=== PATIENT | female | born 1930 | race Caucasian/White ===

== ENCOUNTER 2016-12-08 21:55 | Observation (INO) | payer MEDICARE ==
[~2016-12-08] VITALS: Ht 165.1 cm; Wt 63.6 kg
[2016-12-08] MEDS ORDERED: SODIUM CHLOR 0.9% 1000 ML INJ 1,000 ML IV SCH (22:30)
[2016-12-08] MEDS ORDERED: SODIUM CHLORIDE 0.9% FLUSH 5 ML FLUSH IV FLUSH PRN ×2 (22:30)
--- NOTE | 2016-12-08 22:38 | PD ---
HPI Chief Complaint: Altered Mental Status Time Seen by Provider: 22:35 Travel History International Travel<30 days: No Contact w/Intl Traveler<30days: No History of Present Illness HPI 85-year-old female presents to the ED via EMS for evaluation of altered mental status. Per EMS report the patient was found down this morning by her daughter. The patient states that she lost her balance and fell and was unable to get up. Her daughter cleaned her up and helped her to the recliner. Upon checking on the patient this afternoon she was found to be bradycardic and minimally responsive. EMS administered 0.5 mg atropine and 800 mg IV saline in route. On presentation the patient is alert, oriented 4. She endorses mild nausea and increased urinary urgency. She denies recent history of dizziness, vision changes, fever, chills, chest pain, palpitations, abdominal pain, vomiting. PFSH Social History Tobacco Use: No Allergies-Medications (Allergen,Severity, Reaction): Coded Allergies: grapefruit (Verified Allergy, Unknown, 12/08/16) shellfish derived (Verified Allergy, Unknown, 12/08/16) Uncoded Allergies: oranges (Adverse Reaction, Unknown, 12/08/16) Reported Meds & Prescriptions Reported Meds & Active Scripts Active Reported Centrum Silver Women Tablet (Multivit-Min/Iron/Folic/Lutein) 1 Each Tablet Calcium 600 with Vitamin D (Calcium Carbonate-Cholecalciferol) 600-400 mg-Unit Tab 2 Tab PO DAILY Melatonin 5 Mg Tab 3 Mg PO HS [place]-3 Fish Oil/Vitamin (Fish Oil-Cholecalciferol) 1,000-1,000 Mg Cap 1 Cap PO DAILY Vitamin C (Ascorbic Acid) 250 Mg Tab 500 Mg PO Anastrozole 1 Mg Tab 1 Mg PO DAILY Carbidopa-Levodopa 25-250 Mg Tab 1 Tab PO QID Review of Systems Except as stated in HPI: all other systems reviewed are Neg Physical Exam Narrative GENERAL: Well-nourished, well-developed thin white female in no acute distress. SKIN: Focused skin assessment warm/dry. HEAD: Normocephalic. Atraumatic. EYES: No scleral icterus. No injection or drainage. PERRLA. NECK: Supple, trachea midline. No JVD or lymphadenopathy. CARDIOVASCULAR: Regular rate and rhythm without murmurs, gallops, or rubs. 2+ DP and radial pulses bilaterally. RESPIRATORY: Breath sounds clear and equal bilaterally. No accessory muscle use. GASTROINTESTINAL: Abdomen soft, non-tender, nondistended. Active bowel sounds. MUSCULOSKELETAL: No cyanosis, or edema. No tenderness to palpation of bilateral hips and femurs. Patient is able to flex and extend the knees and ankles. Neurovascularly intact in bilateral lower extremities. BACK: Nontender without obvious deformity. No CVA tenderness. Data Data Last Documented VS Vital Signs Date Time Temp Pulse Resp B/P (MAP) Pulse Ox O2 Delivery O2 Flow Rate FiO2 12/08/16 22:44 97.3 68 16 116/56 (76) 95 Orders Orders Complete Blood Count With Diff (12/08/16 22:29) Comprehensive Metabolic Panel (12/08/16:29) Urinalysis - C+S If Indicated (12/08/16 22:29) Lactic Acid Sepsis Protocol (12/08/16 22:29) Blood Culture (12/08/16 22:29) Chest, Single Ap (12/08/16 22:29) Ct Brain W/O Iv Contrast(Rout) (12/08/16 22:29) Blood Glucose (12/08/16 22:29) Ecg Monitoring (12/08/16 22:29) Iv Access Insert/Monitor (12/08/16 22:29) Oximetry (12/08/16 22:29) Sodium Chloride 0.9% Flush (Ns Flush) (12/08/16 22:30) Electrocardiogram (12/08/16 22:30) Prothrombin Time / Inr (Pt) (12/08/16 22:30) Act Partial Throm Time (Ptt) (12/08/16 22:30) Sodium Chloride 0.9% Flush (Ns Flush) (12/08/16 22:30) Sodium Chlor 0.9% 1000 Ml Inj (Ns 1000 M (12/08/16 22:30) Ct Cerv Spine W/O Contrast (12/08/16 22:30) Creatine Kinase (Cpk) (12/08/16 22:29) Troponin I (12/08/16 22:29) Ceftriaxone Inj (Rocephin Inj) (12/08/16 23:15) Admit Order (Ed Use Only) (12/09/16 00:14) Labs Laboratory Tests Test 12/08/16 22:35 White Blood Count 10.7 TH/MM3 Red Blood Count 4.38 MIL/MM3 Hemoglobin 13.1 GM/DL Hematocrit 39.6 % Mean Corpuscular Volume 90.4 FL Mean Corpuscular Hemoglobin 29.9 PG Mean Corpuscular Hemoglobin Concent 33.1 % Red Cell Distribution Width 14.1 % Platelet Count 171 TH/MM3 Mean Platelet Volume 8.4 FL Neutrophils (%) (Auto) 82.7 % Lymphocytes (%) (Auto) 9.2 % Monocytes (%) (Auto) 7.0 % Eosinophils (%) (Auto) 0.7 % Basophils (%) (Auto) 0.4 % Neutrophils # (Auto) 8.9 TH/MM3 Lymphocytes # (Auto) 1.0 TH/MM3 Monocytes # (Auto) 0.7 TH/MM3 Eosinophils # (Auto) 0.1 TH/MM3 Basophils # (Auto) 0.0 TH/MM3 CBC Comment DIFF FINAL Differential Comment Prothrombin Time 10.6 SEC Prothromb Time International Ratio 1.0 RATIO Activated Partial Thromboplast Time 24.1 SEC Urine Color LIGHT-YELLOW Urine Turbidity CLEAR Urine pH 7.5 Urine Specific [place] 1.010 Urine Protein 30 mg/dL Urine Glucose (UA) NEG mg/dL Urine Ketones 10 mg/dL Urine Occult Blood TRACE Urine Nitrite NEG Urine Bilirubin NEG Urine Urobilinogen LESS THAN 2.0 MG/DL Urine Leukocyte Esterase TRACE Urine RBC 1 /hpf Urine WBC 6 /hpf Urine Amorphous Sediment RARE Urine Mucus FEW /lpf Microscopic Urinalysis Comment CATH-CULT NOT IND Blood Urea Nitrogen 22 MG/DL Creatinine 0.99 MG/DL Random Glucose 120 MG/DL Total Protein 6.4 GM/DL Albumin 3.3 GM/DL Calcium Level 8.9 MG/DL Alkaline Phosphatase 55 U/L Aspartate Amino Transf (AST/SGOT) 22 U/L Alanine Aminotransferase (ALT/SGPT) 18 U/L Total Bilirubin 0.6 MG/DL Sodium Level 144 MEQ/L Potassium Level 3.9 MEQ/L Chloride Level 108 MEQ/L Carbon Dioxide Level 28.6 MEQ/L Anion Gap 7 MEQ/L Estimat Glomerular Filtration Rate 53 ML/MIN Lactic Acid Level 1.2 mmol/L Total Creatine Kinase 128 U/L Troponin I 0.11 NG/ML MDM Medical Decision Making Medical Screen Exam Complete: Yes Emergency Medical Condition: Yes Differential Diagnosis UTI versus PNA versus dehydration versus metabolic derangement versus skull fracture versus ICH versus ACS versus other Narrative Course 85-year-old female presents to the ED via EMS for evaluation of altered mental status. Per EMS report the patient was found down this morning by her daughter. The patient states that she lost her balance and fell and was unable to get up. Her daughter cleaned her up and helped her to the recliner. Upon checking on the patient this afternoon she was found to be bradycardic and minimally responsive. EMS administered 0.5 mg atropine and 800 mg IV saline in route. On presentation the patient is alert, oriented 4. She endorses mild nausea and increased urinary urgency. She denies recent history of dizziness, vision changes, fever, chills, chest pain, palpitations, abdominal pain, vomiting. Vitals reviewed. Patient is frail, but alert on presentation. chest CTAB, abdomen soft and nontender. No focal neuro deficits. Full ROM in the BLE. Lab work ordered and pending. Disposition per Dr. Garcia. Altagracia Michaels Dec 08, 2016 22:38
[2016-12-08 22:44] VITALS: BP 116/56; PULSE 68; RESP 16; TEMP 97.3; O2SAT 95
--- NOTE | 2016-12-08 22:59 | RADRPT ---
EXAM DATE/TIME: 12/08/2016 22:50 [facility] COMPARISON: No previous studies available for comparison. INDICATIONS : Short of breath. MEDICAL HISTORY : None. SURGICAL HISTORY : None. ENCOUNTER: Initial ACUITY: 1 day PAIN SCORE: 0/10 LOCATION: Bilateral chest FINDINGS: A single view of the chest demonstrates no focal consolidation. No effusion. Heart size within normal limits. Mildly tortuous aorta CONCLUSION: 1. No active disease. Eulogio Cool MD on December 08, 2016 at 22:56 Board Certified Radiologist. This report was verified electronically.
[2016-12-08] MEDS ORDERED: CARB25TA12 PO (23:00)
[2016-12-08] MEDS ORDERED: DONE5TAB7 PO (23:00)
[2016-12-08 23:03] LABS: AUTOMATED NEUTROPHIL # 8.9 TH/MM3 (1.8-7.7); BASOPHIL % 0.4 % (0.0-2.0); BLOOD, URINE TRACE (NEG); EOSINOPHIL # 0.1 TH/MM3 (0-0.4); EOSINOPHIL % 0.7 % (0.0-4.0); GLUCOSE,URINE NEG (NEG); HEMATOCRIT 39.6 % (35.0-46.0); HEMO FLAGS DIFF FINAL; KETONE, URINE 10 mg/dL (NEG); LYMPH % 9.2 % (9.0-44.0); MEAN CELL VOLUME 90.4 FL (80.0-100.0); MEAN CORPUSCULAR HEMOGLOBIN 29.9 PG (27.0-34.0); MEAN CORPUSCULAR HGB CONC 33.1 % (32.0-36.0); MUCUS URINE FEW /lpf (OCC); NEUT % 82.7 % (16.0-70.0); NITRITE,URINE NEG (NEG); PH, URINE 7.5 (5.0-8.5); PLATELET COUNT 171 TH/MM3 (150-450); RED BLOOD COUNT 4.38 MIL/MM3 (4.00-5.30); RED CELL DISTRIBUTION WIDTH 14.1 % (11.6-17.2); URINE COLOR LIGHT-YELLOW (YELLW/STRAW); WHITE BLOOD COUNT 10.7 TH/MM3 (4.0-11.0)
[2016-12-08 23:04] LABS: COMMENT (UR) CATH-CULT NOT IND; CULTURE IF INDICATED CATH CULTURE NOT IND
[2016-12-08] MEDS ORDERED: cefTRIAXone INJ 1,000 MG in SODIUM CHLORIDE 0.9% INJ 100 ML IV ONE (23:15)
[2016-12-08] MEDS ORDERED: OMEGCAP PO (23:18)
[2016-12-08] MEDS ORDERED: MELA5TAB15 PO (23:18)
[2016-12-08] MEDS ORDERED: CALC1TAB87 PO (23:18)
[2016-12-08] MEDS ORDERED: VITA250T3 PO (23:18)
[2016-12-08] MEDS ORDERED: ANAS1TAB PO (23:18)
[2016-12-08] MEDS ORDERED: MULT1TAB61 (23:18)
[2016-12-08 23:22] LABS: ALT (GPT) 18 U/L (10-53); ANION GAP 7 MEQ/L (5-15); AST (GOT) 22 U/L (15-37); BICARBONATE 28.6 MEQ/L (21.0-32.0); BLOOD UREA NITROGEN 22 MG/DL (7-18); CHLORIDE 108 MEQ/L (98-107); GLOMERULAR FILTRATION RATE 53 ML/MIN (>89); POTASSIUM 3.9 MEQ/L (3.5-5.1); SODIUM (NA) 144 MEQ/L (136-145)
[2016-12-08 23:25] LABS: APTT (PATIENT) 24.1 SEC (24.3-30.1); PROTHROMBIN TIME - PATIENT 10.6 SEC (9.8-11.6)
[2016-12-08 23:26] LABS: ALKALINE PHOSPHATASE 55 U/L (45-117); CREATINE KINASE 128 U/L (26-192); TOTAL BILIRUBIN ADULT 0.6 MG/DL (0.2-1.0)
--- NOTE | 2016-12-08 23:38 | RADRPT ---
EXAM DATE/TIME: 12/08/2016 23:09 [facility] COMPARISON: No previous studies available for comparison. INDICATIONS : Trauma; patient fell last night. RADIATION DOSE: 56.35 CTDIvol (mGy) MEDICAL HISTORY : Unable to obtain SURGICAL HISTORY : Unable to obtain ENCOUNTER: Initial ACUITY: 1 day PAIN SCALE: Non-responsive LOCATION: cranial TECHNIQUE: Multiple contiguous axial images were obtained of the head. Using automated exposure control and adj ustment of the mA and/or kV according to patient size, radiation dose was kept as low as reasonably a chievable to obtain optimal diagnostic quality images. DICOM format image data is available electro nically for review and comparison. FINDINGS: CEREBRUM: The ventricles are normal for age. No evidence of midline shift, mass lesion, hemorrhage or acute in farction. No extra-axial fluid collections are seen. POSTERIOR FOSSA: The cerebellum and brainstem are intact. The 4th ventricle is midline. The cerebellopontine angle i s unremarkable. EXTRACRANIAL: The visualized portion of the orbits is intact. SKULL: The calvaria is intact. No evidence of skull fracture. CONCLUSION: 1. No acute intracranial abnormalities. Eulogio Cool MD on December 08, 2016 at 23:33 Board Certified Radiologist. This report was verified electronically.
--- NOTE | 2016-12-08 23:56 | RADRPT ---
EXAM DATE/TIME: 12/08/2016 23:10 [facility] COMPARISON: No previous studies available for comparison. INDICATIONS : Trauma; patient fell last night. RADIATION DOSE: 32.73 CTDIvol (mGy) MEDICAL HISTORY : Unable to obtain SURGICAL HISTORY : Unable to obtain ENCOUNTER: Initial ACUITY: 1 day PAIN SCALE: Non-responsive LOCATION: neck TECHNIQUE: Volumetric scanning of the cervical spine was performed. Multiplanar reconstructions in the sagittal, coronal and oblique axial planes were performed. Using automated exposure control and adjustment o f the mA and/or kV according to patient size, radiation dose was kept as low as reasonably achievable to obtain optimal diagnostic quality images. DICOM format image data is available electronically f or review and comparison. FINDINGS: VERTEBRAE: Normal vertebral body height. ALIGNMENT: No evidence of subluxation. C2-C3: The bony spinal canal is normal in size. No evidence of disc bulge or herniation. The neural forami na are bilaterally patent. C3-C4: The bony spinal canal is normal in size. No evidence of disc bulge or herniation. The neural forami na are bilaterally patent. C4-C5: The bony spinal canal is normal in size. No evidence of disc bulge or herniation. The neural forami na are bilaterally patent. C5-C6: The bony spinal canal is normal in size. No evidence of disc bulge or herniation. The neural forami na are bilaterally patent. C6-C7: The bony spinal canal is normal in size. No evidence of disc bulge or herniation. The neural forami na are bilaterally patent. C7-T1: The bony spinal canal is normal in size. No evidence of disc bulge or herniation. The neural forami na are bilaterally patent. CONCLUSION: 1. There is no acute fracture or spondylolisthesis. Facet arthropathy. No acute findings. Eulogio Cool MD on December 08, 2016 at 23:48 Board Certified Radiologist. This report was verified electronically.
[2016-12-09] VITALS (7 sets, daily range): BP systolic 98–156; BP diastolic 47–78; PULSE 49–83; RESP 16–18; TEMP 97.4–97.7; O2SAT 96–99
--- NOTE | 2016-12-09 00:14 | PD ---
Physical Exam Date Seen by Provider: Dec 09, 2016 Narrative This patient be seen for weakness. Please see Altagracia Michaels's note for full details. Data Data Last Documented VS Vital Signs Date Time Temp Pulse Resp B/P (MAP) Pulse Ox O2 Delivery O2 Flow Rate FiO2 12/08/16 22:44 97.3 68 16 116/56 (76) 95 Orders Orders Complete Blood Count With Diff (12/08/16 22:29) Comprehensive Metabolic Panel (12/08/16 22:29) Urinalysis - C+S If Indicated (12/08/16 22:29) Lactic Acid Sepsis Protocol (12/08/16 22:29) Blood Culture (12/08/16 22:29) Chest, Single Ap (12/08/16 22:29) Ct Brain W/O Iv Contrast(Rout) (12/08/16 22:29) Blood Glucose (12/08/16 22:29) Ecg Monitoring (12/08/16 22:29) Iv Access Insert/Monitor (12/08/16 22:29) Oximetry (12/08/16 22:29) Sodium Chloride 0.9% Flush (Ns Flush) (12/08/16 22:30) Electrocardiogram (12/08/16 22:30) Prothrombin Time / Inr (Pt) (12/08/16 22:30) Act Partial Throm Time (Ptt) (12/08/16 22:30) Sodium Chloride 0.9% Flush (Ns Flush) (12/08/16 22:30) Sodium Chlor 0.9% 1000 Ml Inj (Ns 1000 M (12/08/16 22:30) Ct Cerv Spine W/O Contrast (12/08/16 22:30) Creatine Kinase (Cpk) (12/08/16 22:29) Troponin I (12/08/16 22:29) Ceftriaxone Inj (Rocephin Inj) (12/08/16 23:15) Labs Laboratory Tests Test 12/08/16 22:35 White Blood Count 10.7 TH/MM3 Red Blood Count 4.38 MIL/MM3 Hemoglobin 13.1 GM/DL Hematocrit 39.6 % Mean Corpuscular Volume 90.4 FL Mean Corpuscular Hemoglobin 29.9 PG Mean Corpuscular Hemoglobin Concent 33.1 % Red Cell Distribution Width 14.1 % Platelet Count 171 TH/MM3 Mean Platelet Volume 8.4 FL Neutrophils (%) (Auto) 82.7 % Lymphocytes (%) (Auto) 9.2 % Monocytes (%) (Auto) 7.0 % Eosinophils (%) (Auto) 0.7 % Basophils (%) (Auto) 0.4 % Neutrophils # (Auto) 8.9 TH/MM3 Lymphocytes # (Auto) 1.0 TH/MM3 Monocytes # (Auto) 0.7 TH/MM3 Eosinophils # (Auto) 0.1 TH/MM3 Basophils # (Auto) 0.0 TH/MM3 CBC Comment DIFF FINAL Differential Comment Prothrombin Time 10.6 SEC Prothromb Time International Ratio 1.0 RATIO Activated Partial Thromboplast Time 24.1 SEC Urine Color LIGHT-YELLOW Urine Turbidity CLEAR Urine pH 7.5 Urine Specific [place] 1.010 Urine Protein 30 mg/dL Urine Glucose (UA) NEG mg/dL Urine Ketones 10 mg/dL Urine Occult Blood TRACE Urine Nitrite NEG Urine Bilirubin NEG Urine Urobilinogen LESS THAN 2.0 MG/DL Urine Leukocyte Esterase TRACE Urine RBC 1 /hpf Urine WBC 6 /hpf Urine Amorphous Sediment RARE Urine Mucus FEW /lpf Microscopic Urinalysis Comment CATH-CULT NOT IND Blood Urea Nitrogen 22 MG/DL Creatinine 0.99 MG/DL Random Glucose 120 MG/DL Total Protein 6.4 GM/DL Albumin 3.3 GM/DL Calcium Level 8.9 MG/DL Alkaline Phosphatase 55 U/L Aspartate Amino Transf (AST/SGOT) 22 U/L Alanine Aminotransferase (ALT/SGPT) 18 U/L Total Bilirubin 0.6 MG/DL Sodium Level 144 MEQ/L Potassium Level 3.9 MEQ/L Chloride Level 108 MEQ/L Carbon Dioxide Level 28.6 MEQ/L Anion Gap 7 MEQ/L Estimat Glomerular Filtration Rate 53 ML/MIN Lactic Acid Level 1.2 mmol/L Total Creatine Kinase 128 U/L Troponin I 0.11 NG/ML [facility] Supervised Visit with [facility]: Yes Narrative Course CBC & BMP Diagram 12/08/16 22:35 Total Protein 6.4, Albumin 3.3 L, Calcium Level 8.9, Alkaline Phosphatase 55, Aspartate Amino Transf (AST/SGOT) 22, Alanine Aminotransferase (ALT/SGPT) 18, Total Bilirubin 0.6 Lactic acid level was 1.2. UA shows trace leukocyte esterase and 6 white blood cells. She has been treated empirically with Rocephin. Troponin is elevated at 0.11. Renal function is only mildly diminished. Because of the profound weakness associated with a UTI and because of the elevated troponin, this patient needs to be admitted to observation for further evaluation and treatment. She and her daughter are agreeable with this plan. Physician Communication Physician Communication Dr. Dudley Diagnosis Primary Impression: Elevated troponin Additional Impressions: Urinary tract infection Qualified Codes: N30.00 - Acute cystitis without hematuria Frequent falls Weakness Admitting Information Admitting Physician Requests: Observation Condition: Stable Dara Garcia MD Dec 09, 2016 00:14
[2016-12-09] MEDS ORDERED: NITROGLYCERIN 0.4 MG SL 25 TABS/BTL SL PRN (00:30)
--- NOTE | 2016-12-09 07:48 | EKG ---
Date Performed: 12/09/2016 Time Performed: 04:41:41 PTAGE: 85 years EKG: SINUS BRADYCARDIA NONSPECIFIC T-WAVE ABNORMALITY BORDERLINE ECG PREVIOUS TRACING : 12/08/2016 22.37 No significant change from previous tracing noted. DOCTOR: Sanjiv Lock Interpretating Date/Time 12/09/2016 07:47:28
[2016-12-09] MEDS ORDERED: NON-FORMULARY DRUG (Fish Oil-Cholecalciferol (Omega-3 Fish Oil/Vitamin) 1 CAP) PO SCH (09:00)
--- NOTE | 2016-12-09 09:01 | HHI.HP ---
HPI Service [facility] Hospitalists Primary Care Physician Dr. Miguel Ortega Admission Diagnosis elevated troponin, UTI, weakness, frequent falls Chief Complaint: Generalized Weakness Travel History International Travel<30 Days: No Contact w/Intl Traveler <30 Da: No History of Present Illness Mrs. Mckee is a pleasant 85 y/o WF with Parkinson's Disease, osteoarthritis , CKD, stage 3 and hx of breast cancer. Pt was brought to the ED by [facility]AC after she was found down at home by her daughter. Pt reportedly lives alone. She typically ambulates with the use of a cane at home. Pt is somewhat confused and a poor historian. She states that she fell yesterday in her bedroom but is unclear of how she fell. The pt denies any LOC or head injury. No complaints of pain. Its also not clear how long she was down on the ground for. Pt states that she was too weak to get up on her own. Per the ER records, when [facility]AC arrived she was found to be bradycardic and minimally responsive. EMS administered 0.5 mg atropine and 800 mg IV saline in route with improvement in her clinical status. She denies any abd pain, chest pain, nausea/vomiting or diarrhea. She states that she drinks plenty of fluids and that her daughter and/ or grandson bring her food. She is unclear of the details of what happened at home. She tells me that she is "just tired and doesn't want to talk." She told the the ED PA that she had some mild nausea and increased urinary urgency. UA noted some trace LE and elevated WBC and protein. She is afebrile and WBC count has been normal. Pt was given Rocephin in the ED. Review of Systems ROS Limitations: Poor Historian Constitutional: DENIES: Fever, Chills Eyes: DENIES: Vision loss Ears, nose, mouth, throat: DENIES: Hearing loss Respiratory: DENIES: Cough, Shortness of breath Cardiovascular: DENIES: Chest pain, Palpitations Gastrointestinal: DENIES: Abdominal pain, Diarrhea, Nausea, Vomiting Genitourinary: COMPLAINS OF: Urinary frequency, DENIES: Hematuria, Dysuria Musculoskeletal: DENIES: Neck pain Integumentary: DENIES: Rash Neurologic: DENIES: Headache Psychiatric: COMPLAINS OF: Confusion, DENIES: Hallucinations Past Family Social History Past Medical History HTN Hyperlipidemia Osteoarthritis Degenerative joint disease Parkinson's disease Hx of breast cancer s/p lumpectomy CKD, stage 3 Right femoral neck fracture in 03/2016 Past Surgical History Breast lumpectomy Right hip hemiarthroplasty 03/19/[address] Drake Huber Reported Medications -Anastrozole 1 Mg PO DAILY -Carbidopa-Levodopa 25-250 Mg PO QID Centrum Silver Women Tablet (Multivit-Min/Iron/Folic/Lutein) 1 Each Tablet Calcium 600 with Vitamin D (Calcium Carbonate-Cholecalciferol) 600-400 mg-Unit Tab 2 Tab PO DAILY Melatonin 5 Mg Tab 3 Mg PO HS Banner-3 Fish Oil/Vitamin (Fish Oil-Cholecalciferol) 1,000-1,000 Mg Cap 1 Cap PO DAILY Vitamin C (Ascorbic Acid) 250 Mg Tab 500 Mg PO Allergies: Coded Allergies: grapefruit (Verified Allergy, Unknown, 12/08/16) shellfish derived (Verified Allergy, Unknown, 12/08/16) Uncoded Allergies: oranges (Adverse Reaction, Unknown, 12/08/16) Family History Noncontributory Social History Hx of social alcohol use, none recently Denies any tobacco or illicit drug use Physical Exam Vital Signs Vital Signs Date Time Temp Pulse Resp B/P (MAP) Pulse Ox O2 Delivery O2 Flow Rate FiO2 12/09/16 04:56 49 16 156/78 (104) 98 Room Air 12/09/16 03:36 97.7 75 18 117/78 (91) 98 Room Air 12/08/16 22:44 97.3 68 16 116/56 (76) 95 Physical Exam GENERAL: This is a thin elderly female, in no apparent distress. SKIN: No rashes, ecchymoses or lesions. Cool and dry. HEENT: Atraumatic. Normocephalic. No temporal or scalp tenderness. No scleral icterus. Airway patent. NECK: Trachea midline, supple, nontender. CARDIO: Regular, uri RESP: CTA bilaterally. No wheezes, rales, or rhonchi. ABD: +BS, soft, non-tender, nondistended. EXT: Extremities without clubbing, cyanosis, or edema. NEURO: Awake and confused. Motor and sensory grossly within normal limits. Normal speech. Memory deficits Laboratory Laboratory Tests Test 12/08/16 22:35 12/09/16 03:46 White Blood Count 10.7 Red Blood Count 4.38 Hemoglobin 13.1 Hematocrit 39.6 Mean Corpuscular Volume 90.4 Mean Corpuscular Hemoglobin 29.9 Mean Corpuscular Hemoglobin Concent 33.1 Red Cell Distribution Width 14.1 Platelet Count 171 Mean Platelet Volume 8.4 Neutrophils (%) (Auto) 82.7 Lymphocytes (%) (Auto) 9.2 Monocytes (%) (Auto) 7.0 Eosinophils (%) (Auto) 0.7 Basophils (%) (Auto) 0.4 Neutrophils # (Auto) 8.9 Lymphocytes # (Auto) 1.0 Monocytes # (Auto) 0.7 Eosinophils # (Auto) 0.1 Basophils # (Auto) 0.0 CBC Comment DIFF FINAL Differential Comment Prothrombin Time 10.6 Prothromb Time International Ratio 1.0 Activated Partial Thromboplast Time 24.1 Urine Color LIGHT-YELLOW Urine Turbidity CLEAR Urine pH 7.5 Urine Specific [place] 1.010 Urine Protein 30 Urine Glucose (UA) NEG Urine Ketones 10 Urine Occult Blood TRACE Urine Nitrite NEG Urine Bilirubin NEG Urine Urobilinogen LESS THAN 2.0 Urine Leukocyte Esterase TRACE Urine RBC 1 Urine WBC 6 Urine Amorphous Sediment RARE Urine Mucus FEW Microscopic Urinalysis Comment CATH-CULT NOT IND Blood Urea Nitrogen 22 Creatinine 0.99 Random Glucose 120 Total Protein 6.4 Albumin 3.3 Calcium Level 8.9 Alkaline Phosphatase 55 Aspartate Amino Transf (AST/SGOT) 22 Alanine Aminotransferase (ALT/SGPT) 18 Total Bilirubin 0.6 Sodium Level 144 Potassium Level 3.9 Chloride Level 108 Carbon Dioxide Level 28.6 Anion Gap 7 Estimat Glomerular Filtration Rate 53 Lactic Acid Level 1.2 Total Creatine Kinase 128 109 Troponin I 0.11 0.09 Date/Time Source Procedure Growth Status 12/08/16 22:35 Blood Peripheral Aerobic Blood Culture Pending Received 12/08/16 22:35 Blood Peripheral Anaerobic Blood Culture Pending Received Result Diagram: 12/08/16223412/08/162234 Septic Shock Reassessment Heart: Regular rate and rhythm Lungs: Clear Skin: Warm Caprini VTE Risk Assessment Caprini VTE Risk Assessment: Mod/High Risk (score >= 2) Caprini Risk Assessment Model Point Value = 1 Point Value = 2 Point Value = 3 Point Value = 5 Age 41-60 Minor surgery BMI > 25 kg/m2 Swollen legs Varicose veins or History of unexplained or recurrent spontaneous Oral contraceptives or hormone replacement Sepsis (< 1 month) Serious lung disease, including pneumonia (< 1 month) Abnormal pulmonary function Acute myocardial infarction Congestive heart failure (< 1 month) History of inflammatory bowel disease Medical patient at bed rest Age 61-74 Arthroscopic surgery Major open surgery (> 45 min) Laparoscopic surgery (> 45 min) Malignancy Confined to bed (> 72 hours) Immobilizing plaster cast Central venous access Age >= 75 History of VTE Family history of VTE Factor V Leiden Prothrombin [id number] Lupus anticoagulant Anticardiolipin antibodies Elevated serum homocysteine Heparin-induced thrombocytopenia Other congenital or acquired thrombophilia Stroke (< 1 month) Elective arthroplasty Hip, pelvis, or leg fracture Acute spinal cord injury (< 1 month) Prophylaxis Regimen Total Risk Factor Score Risk Level Prophylaxis Regimen 0-1 Low Early ambulation 2 Moderate Order ONE of the following: *Sequential Compression Device (SCD) *Heparin 5000 units SQ BID 3-4 Higher Order ONE of the following medications: *Heparin 5000 units SQ TID *Enoxaparin/Lovenox 40 mg SQ daily (WT < 150 kg, CrCl > 30 mL/min) *Enoxaparin/Lovenox 30 mg SQ daily (WT < 150 kg, CrCl > 10-29 mL/min) *Enoxaparin/Lovenox 30 mg SQ BID (WT < 150 kg, CrCl > 30 mL/min) AND/OR *Sequential Compression Device (SCD) 5 or more Highest Order ONE of the following medications: *Heparin 5000 units SQ TID (Preferred with Epidurals) *Enoxaparin/Lovenox 40 mg SQ daily (WT < 150 kg, CrCl > 30 mL/min) *Enoxaparin/Lovenox 30 mg SQ daily (WT < 150 kg, CrCl > 10-29 mL/min) *Enoxaparin/Lovenox 30 mg SQ BID (WT < 150 kg, CrCl > 30 mL/min) AND *Sequential Compression Device (SCD) Assessment and Plan Problem List: (1) Weakness ICD Codes: R53.1 - Weakness Status: Acute Plan: - Pt is an 85 y/o female with Parkinson's Disease who was brought in after a fall at home and was found on the floor by her family. - It is not clear what caused the fall. The pt denies any LOC or head injury. No complaints of pain. She was too weak to get up on her own. - She had a previous fall in late February 2016 and sustained a right hip fracture that required surgical repair in [facility]. - In the field, EVAC reported that the pt was lethargic and bradycardic and was administered IVF bolus and Atropine. - Pt received additional IVF in the ED - Cervical spine CT (12/08) --> No acute fracture or spondylolisthesis. Facet arthropathy. No acute findings. - CXR (12/08) --> Negative. - Head CT(12/08) --> Negative for any acute abnormality - Her UA was abnormal but no culture was indicated. She was treated with a dose of IV Rocephin in the ED. - Pt had reported some urinary urgency to the ED PA. - Pt lives alone and will likely need SNF placement at the end of this hospitalization for continued rehab efforts. 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 - I was unable to reach any family members by phone to discuss the case with. Will attempt to reach them this afternoon. - Check orthostatics - Telemetry - PT evaluation - Bedside swallow evaluation - Supportive care - DVT prophylaxis with SCDs ADDENDUM: - I spoke with the pts daughter, Diamond White ([phone]) and she reports that the patient has been in decline for the last 6 months. The patient has been weaker, having urinary incontinence/urgency, nausea and complains of intermittent dizziness. The pt had reportedly fallen in her bedroom last week. The patients daughter states that the patient had slipped down the side of her bed at that time. Friday, 12/07, the patients daughter left the patients house around 10:30PM that evening and the pt was reportedly going to be doing some dishes before bed. When the patient's daughter came back to check on her at 1500 on Friday, the patient was found down in her kitchen and was covered in urine and was slightly confused. She got her mom to the bathroom and showered and sat her down in the recliner. She states that she noted the patient to be somewhat lethargic and not responding appropriately and called emergency services. There has been no cardiac hx of hx of CVA. Pt denies any chest pain, SOB or palpitations. - We will check 2D echo and Holter monitor as well as a Carotid US (2) Frequent falls ICD Codes: R29.6 - Repeated falls Status: Chronic Plan: - See above (3) Parkinson disease ICD Codes: G20 - Parkinson's disease Status: Chronic Plan: - Home meds continued (4) Elevated troponin ICD Codes: R74.8 - Abnormal levels of other serum enzymes Status: Acute Plan: - Labs are trending down. - No reported chest pain - May be demand mediated Assessment and Plan Patient examined. Assessment and plan formulated with Saima Freeman PA-C. I agree with the above. c/o dizziness/falls. atropine for uri per EMS. holter/echo. PT and will likely need snf. Saima Freeman Dec 09, 2016 09:01 Austin Dudley MD Dec 09, 2016 21:30
[2016-12-09] MEDS: ANASTROZOLE 1 MG TAB PO SCH (10:13)
[2016-12-09] MEDS: CARBIDOPA/LEVODOPA 25 MG/250 MG TAB PO SCH ×4 (10:13→21:43)
--- NOTE | 2016-12-09 12:04 | EKG ---
Date Performed: 12/09/2016 Time Performed: 10:05:40 PTAGE: 85 years EKG: SINUS BRADYCARDIA WITH SINUS ARRHYTHMIA NONSPECIFIC T-WAVE ABNORMALITY BORDERLINE ECG PREVIOUS TRACING : 12/09/2016 04.41 No significant change from previous tracing noted. DOCTOR: Sanjiv Lock Interpretating Date/Time 12/09/2016 12:03:00
--- NOTE | 2016-12-09 13:43 | EKG ---
Date Performed: 12/08/2016 Time Performed: 22:37:57 PTAGE: 85 years EKG: Sinus rhythm NORMAL ECG NO PREVIOUS TRACING DOCTOR: Sanjiv Lock Interpretating Date/Time 12/09/2016 13:41:43
--- NOTE | 2016-12-09 17:01 | RADRPT ---
EXAM DATE/TIME: 12/09/2016 15:55 [facility] COMPARISON: No previous studies available for comparison. INDICATIONS : Syncope. MEDICAL HISTORY : Parkinson's. SURGICAL HISTORY : Hysterectomy. Appendectomy. ENCOUNTER: Initial ACUITY: 1 day PAIN SCORE: 0/10 LOCATION: Bilateral neck PEAK SYSTOLIC VELOCITIES (cm/sec): ICA/CCA RATIO: Right: 1.2 Left: 1.2 ICA: Right: 88.4 Left: 75.7 CCA: Right: 75.7 Left: 64.4 ECA: Right: 116.3 Left: 82.2 VERTEBRAL: Right: 39.4 antegrade Left: 41.7 antegrade Elevated flow velocities and ICA/CCA ratios have been found to correlate with increased degrees of vessel stenosis, calculated as percentage of diameter relative to a normal segment of distal ICA/CCA FINDINGS: RIGHT CAROTID: No significant stenosis is visualized. Minimal plaque. The waveforms are within normal limits. LEFT CAROTID: No significant stenosis is visualized. Minimal plaque. The waveforms are within normal limits. VERTEBRAL ARTERIES: Antegrade flow is seen in both vertebral arteries. MISCELLANEOUS: None. CONCLUSION: No hemodynamically significant stenosis in either carotid artery. Crispin Nance MD on December 09, 2016 at 16:58 Board Certified Radiologist. This report was verified electronically.
[2016-12-09] MEDS ORDERED: MELATONIN 5 MG TAB PO SCH (21:00)
[2016-12-10] VITALS (13 sets, daily range): BP systolic 122–162; BP diastolic 53–70; PULSE 48–67; RESP 14–18; TEMP 97.6–98.6; O2SAT 95–100
[2016-12-10] MEDS: CARBIDOPA/LEVODOPA 25 MG/250 MG TAB PO SCH ×4 (08:25→21:28)
[2016-12-10] MEDS: ANASTROZOLE 1 MG TAB PO SCH (08:26)
--- NOTE | 2016-12-10 08:32 | HHI.PR ---
Subjective Remarks Pt seems more alert and awake this morning. Sitting in bed eating breakfast. She has been ambulating to the bathroom with minimal assistance per nursing staff. Bradycardic on telemetry, HR in the 40-50's pt does not appear symptomatic. Objective Vitals Vital Signs Date Time Temp Pulse Resp B/P (MAP) Pulse Ox O2 Delivery O2 Flow Rate FiO2 12/10/16 07:44 50 12/10/16 04:19 98.4 53 18 138/59 (85) 95 12/10/16 03:40 48 12/10/16 01:19 97.9 56 18 130/60 (83) 97 12/10/16 00:57 54 12/09/16 20:56 83 12/09/16 17:42 59 12/09/16 17:38 97.7 61 16 134/60 (84) 96 12/09/16 11:18 12/09/16 11:13 97.4 55 16 98/47 (64) 96 12/09/16 09:00 63 18 117/54 (75) 99 Room Air Result Diagram: 12/08/16223412/08/162234 Other Results Laboratory Tests Test 12/08/16 22:35 12/09/16 03:46 12/09/16 10:10 White Blood Count 10.7 TH/MM3 Red Blood Count 4.38 MIL/MM3 Hemoglobin 13.1 GM/DL Hematocrit 39.6 % Mean Corpuscular Volume 90.4 FL Mean Corpuscular Hemoglobin 29.9 PG Mean Corpuscular Hemoglobin Concent 33.1 % Red Cell Distribution Width 14.1 % Platelet Count 171 TH/MM3 Mean Platelet Volume 8.4 FL Neutrophils (%) (Auto) 82.7 % Lymphocytes (%) (Auto) 9.2 % Monocytes (%) (Auto) 7.0 % Eosinophils (%) (Auto) 0.7 % Basophils (%) (Auto) 0.4 % Neutrophils # (Auto) 8.9 TH/MM3 Lymphocytes # (Auto) 1.0 TH/MM3 Monocytes # (Auto) 0.7 TH/MM3 Eosinophils # (Auto) 0.1 TH/MM3 Basophils # (Auto) 0.0 TH/MM3 CBC Comment DIFF FINAL Differential Comment Prothrombin Time 10.6 SEC Prothromb Time International Ratio 1.0 RATIO Activated Partial Thromboplast Time 24.1 SEC Urine Color LIGHT-YELLOW Urine Turbidity CLEAR Urine pH 7.5 Urine Specific [place] 1.010 Urine Protein 30 mg/dL Urine Glucose (UA) NEG mg/dL Urine Ketones 10 mg/dL Urine Occult Blood TRACE Urine Nitrite NEG Urine Bilirubin NEG Urine Urobilinogen LESS THAN 2.0 MG/DL Urine Leukocyte Esterase TRACE Urine RBC 1 /hpf Urine WBC 6 /hpf Urine Amorphous Sediment RARE Urine Mucus FEW /lpf Microscopic Urinalysis Comment CATH-CULT NOT IND Blood Urea Nitrogen 22 MG/DL Creatinine 0.99 MG/DL Random Glucose 120 MG/DL Total Protein 6.4 GM/DL Albumin 3.3 GM/DL Calcium Level 8.9 MG/DL Alkaline Phosphatase 55 U/L Aspartate Amino Transf (AST/SGOT) 22 U/L Alanine Aminotransferase (ALT/SGPT) 18 U/L Total Bilirubin 0.6 MG/DL Sodium Level 144 MEQ/L Potassium Level 3.9 MEQ/L Chloride Level 108 MEQ/L Carbon Dioxide Level 28.6 MEQ/L Anion Gap 7 MEQ/L Estimat Glomerular Filtration Rate 53 ML/MIN Lactic Acid Level 1.2 mmol/L Total Creatine Kinase 128 U/L 109 U/L 106 U/L Troponin I 0.11 NG/ML 0.09 NG/ML 0.06 NG/ML Imaging Last Impressions Cervical Spine CT 12/08/162229 Signed Impressions: Service Date/Time: Thursday, December 08, 2016 23:10 - CONCLUSION: 1. There is no acute fracture or spondylolisthesis. Facet arthropathy. No acute findings. Eulogio Cool MD Head CT 12/08/162228 Signed Impressions: Service Date/Time: Thursday, December 08, 2016 23:09 - CONCLUSION: 1. No acute intracranial abnormalities. Eulogio Cool MD Chest X-Ray 12/08/162228 Signed Impressions: Service Date/Time: Thursday, December 08, 2016 22:50 - CONCLUSION: 1. No active disease. Eulogio Cool MD Objective Remarks General: NAD, Awake and alert Chest: CTA Cardiac: Regular, uri Abd: +BS, soft ND/NT Ext: No edema A/P Problem List: (1) Weakness ICD Codes: R53.1 - Weakness Status: Acute Plan: - Pt is an 85 y/o female with Parkinson's Disease who was brought in after a fall at home and was found on the floor by her family. - She had a previous fall in late February 2016 and sustained a right hip fracture that required surgical repair in [facility]. - In the field, EVAC reported that the pt was lethargic and bradycardic and was administered IVF bolus and Atropine. - Pt received additional IVF in the ED - Cervical spine CT (12/08) --> No acute fracture or spondylolisthesis. Facet arthropathy. No acute findings. - CXR (12/08) --> Negative. - Head CT(12/08) --> Negative for any acute abnormality - Her UA was abnormal but no culture was indicated. She was treated with a dose of IV Rocephin in the ED. - 2D echo --> pending - Holter monitor ---> pending - Carotid US --> No hemodynamically significant stenosis in either carotid artery - Check orthostatics - Telemetry - PT daily - Anticipate discharge to SNF at the end of this hospitalization. - Supportive care - DVT prophylaxis with SCDs (2) Frequent falls ICD Codes: R29.6 - Repeated falls Status: Chronic Plan: - See above (3) Parkinson disease ICD Codes: G20 - Parkinson's disease Status: Chronic Plan: - Home meds continued (4) Elevated troponin ICD Codes: R74.8 - Abnormal levels of other serum enzymes Status: Acute Plan: - Labs are trending down. - No reported chest pain - May be demand mediated Assessment and Plan Patient examined. Assessment and plan formulated with Saima Freeman PA-C. I agree with the above. dizziness/falls. s/p atropine for uri per EMS ?vasovagal. r/o underlying conduction dz. echo and holter pending. if unremarkable then d/c to snf. Saima Freeman Dec 10, 2016 08:32 Austin Dudley MD Dec 10, 2016 14:14
--- NOTE | 2016-12-10 14:49 | ECHRPT ---
Indication: syncope CONCLUSIONS Normal left ventricular size. There is assymetric septal hypertrophy. No regional wall motion abnormalities are present. [id number] mitral valve regurgitation. There is mild tricuspid valve regurgitation. The pulmonary valve is not well visualized. BP: / HR: Rhythm: MEASUREMENTS (Male / Female) Normal Values Technical Quality:Good 2D ECHO LV Diastolic Diameter PLAX 4.5 cm 4.2 - 5.9 / 3.9 - 5.3 cm LV Systolic Diameter PLAX 3.3 cm IVS Diastolic Thickness 1.4 cm 0.6 - 1.0 / 0.6 - 0.9 cm LVPW Diastolic Thickness 1.0 cm 0.6 - 1.0 / 0.6 - 0.9 cm LV Relative Wall Thickness 0.5 RV Internal Dim ED PLAX 2.3 cm M-MODE Aortic Root Diameter MM 2.8 cm LA Systolic Diameter MM 4.1 cm LA Ao Ratio MM 1.5 AV Cusp Separation MM 1.9 cm DOPPLER Mitral E Point Velocity 56.8 cm/s Mitral A Point Velocity 85.9 cm/s Mitral E to A Ratio 0.7 LV E' Lateral Velocity 7.7 cm/s Mitral E to LV E' Lateral Ratio 7.4 LV E' Septal Velocity 6.7 cm/s Mitral E to LV E' Septal Ratio 8.4 TR Peak Velocity 304.0 cm/s TR Peak Gradient 37.0 mmHg FINDINGS LEFT VENTRICLE The left ventricular systolic function is normal with an estimated ejection fraction in the range of 60-65%. Normal left ventricular size. There is assymetric septal hypertrophy. No regional wall motion abnormalities are present. RIGHT VENTRICLE Normal right ventricular size and systolic function. LEFT ATRIUM The left atrial size is normal. RIGHT ATRIUM The right atrial size is normal. ATRIAL SEPTUM Normal atrial septal thickness without atrial level shunting by limited color doppler interrogation. AORTA The aortic root and proximal ascending aorta are normal in size on limited imaging. MITRAL VALVE Structurally normal mitral valve. [id number] mitral valve regurgitation. AORTIC VALVE Trileaflet aortic valve. No aortic valve stenosis or regurgitation. TRICUSPID VALVE Structurally normal tricuspid valve. There is mild tricuspid valve regurgitation. PULMONARY VALVE The pulmonary valve is not well visualized. VESSELS The inferior vena cava is normal in size. PERICARDIUM No pericardial effusion. Christy Lincoln MD, FACC (Electronically Signed) Final Date:10 December 2016 14:48
[2016-12-11 00:02] VITALS: PULSE 53
[2016-12-11 04:00] VITALS: PULSE 47
[2016-12-11 04:28] VITALS: PULSE 50
[2016-12-11] MEDS: CARBIDOPA/LEVODOPA 25 MG/250 MG TAB PO SCH ×3 (08:44→18:32)
[2016-12-11] MEDS: ANASTROZOLE 1 MG TAB PO SCH (08:44)
[2016-12-11] MEDS ORDERED: BISACODYL EC 5 MG TABEC PO ONE (09:00)
[2016-12-11] MEDS ORDERED: MAGNESIUM HYDROXIDE SUSP 30 ML CUP PO PRN (09:00)
--- NOTE | 2016-12-11 09:04 | HHI.FF ---
Face to Face Verification Diagnosis: (1) Frequent falls (2) Weakness (3) Elevated troponin (4) Parkinson disease Physical Therapy Order: Evaluate and Treat, Improve ambulation, Strength and gait training Home Health Nursing Order: Medical education Nursing assessment with vital signs I have seen patient Alejandrina Mckee on 12/11/16. My clinical findings support the need for the requested home health care services because: Deconditioned w/ increased weakness Limited ability to care for self High risk of falls I certify that my clinical findings support that this patient is homebound because: Impaired cognitive ability/safety Unsteady gait/balance Saima Freeman Dec 11, 2016 09:04 Austin Dudley MD Dec 11, 2016 16:27
--- NOTE | 2016-12-11 09:04 | HHI.PR ---
Subjective Remarks Pt complains of constipation today She has been up and walking to the bathroom with use of her walker Pts family wants her to go home with [facility] Objective Vitals Vital Signs Date Time Temp Pulse Resp B/P (MAP) Pulse Ox O2 Delivery O2 Flow Rate FiO2 12/11/16 04:28 50 12/11/16 04:00 47 12/11/16 00:02 53 12/10/16 23:50 98.3 54 14 139/65 (89) 97 12/10/16 20:28 97.6 58 18 131/59 (83) 100 12/10/16 19:53 60 12/10/16 16:08 98.6 55 16 141/64 (89) 100 12/10/16 16:00 67 12/10/16 12:05 97.9 57 16 122/53 (76) 98 129/58 (81) 133/62 (85) 12/10/16 11:45 56 Result Diagram: 12/08/16223412/08/162234 Other Results Laboratory Tests Test 12/09/16 10:10 Total Creatine Kinase 106 U/L Troponin I 0.06 NG/ML Imaging Last Impressions Cervical Spine CT 12/08/162229 Signed Impressions: Service Date/Time: Thursday, December 08, 2016 23:10 - CONCLUSION: 1. There is no acute fracture or spondylolisthesis. Facet arthropathy. No acute findings. Eulogio Cool MD Head CT 12/08/162228 Signed Impressions: Service Date/Time: Thursday, December 08, 2016 23:09 - CONCLUSION: 1. No acute intracranial abnormalities. Eulogio Cool MD Chest X-Ray 12/08/162228 Signed Impressions: Service Date/Time: Thursday, December 08, 2016 22:50 - CONCLUSION: 1. No active disease. Eulogio Cool MD Objective Remarks General: NAD, Awake and alert Chest: CTA Cardiac: Regular, uri Abd: +BS, soft ND/NT Ext: No edema A/P Problem List: (1) Weakness ICD Codes: R53.1 - Weakness Status: Acute Plan: - Pt is an 85 y/o female with Parkinson's Disease who was brought in after a fall at home and was found on the floor by her family. - She had a previous fall in late February 2016 and sustained a right hip fracture that required surgical repair in [facility]. - In the field, [facility] reported that the pt was lethargic and bradycardic and was administered IVF bolus and Atropine. - Pt received additional IVF in the ED - Cervical spine CT (12/08) --> No acute fracture or spondylolisthesis. Facet arthropathy. No acute findings. - CXR (12/08) --> Negative. - Head CT(12/08) --> Negative for any acute abnormality - Her UA was abnormal but no culture was indicated. She was treated with a dose of IV Rocephin in the ED. - 2D echo --> Asymmetric septal hypertrophy, [id number] mitral valve regurgitation, mild tricuspid valve regurg, pulmonary valve is not well visualized. - Carotid US --> No hemodynamically significant stenosis in either carotid artery - Orthostatics are negative. - ??vasovagal episode which caused the lethargy and bradycardia noted prior to admission as the pt had some associated nausea and her daughter had just given her a shower to get her cleaned up. But we will need to r/o underlying conduction dz. - Holter monitor ---> pending, should be read today - Telemetry - PT daily - Family does not want SNF, they request HHC/PT - Supportive care - DVT prophylaxis with SCDs (2) Frequent falls ICD Codes: R29.6 - Repeated falls Status: Chronic Plan: - See above (3) Parkinson disease ICD Codes: G20 - Parkinson's disease Status: Chronic Plan: - Home meds continued (4) Elevated troponin ICD Codes: R74.8 - Abnormal levels of other serum enzymes Status: Acute Plan: - Labs are trending down. - No reported chest pain - May be demand mediated Saima Freeman Dec 11, 2016 09:03
[2016-12-11 11:59] VITALS: BP 171/70; PULSE 63; RESP 17; TEMP 98.6; O2SAT 95
[2016-12-11 12:12] VITALS: BP_SYST 168; BP_SYST 171; BP_SYST 185; BP_DIAS 70; BP_DIAS 76; BP_DIAS 79
--- NOTE | 2016-12-11 20:22 | HM ---
Date Performed: 12/09/2016 Time Performed: 16:53:00 HOOKUP DATE: 12/09/16 04:53:00 PM Mon ANALYSIS START TIME: 12/09/2016 4:58:00 PM ANALYSIS END TIME: 12/10/2016 4:27:03 PM PATIENT AGE: 85 PATIENT HEIGHT PATIENT WEIGHT DRUG LIST PATIENT DIAGNOSIS: WEAKNESS TEST NARRATIVE: The patient's average heart rate was 57 BPM. No episodes of tachycardia wer e noted. Heart rates less than 50 BPM were noted 29% of the time. No pauses exceeding 2.0 second s were noted. 1390 ventricular ectopics, which represented 2% of the total beat count, were noted . The highest ventricular ectopic frequency occurred from 02:00 PM to 03:00 PM Tue. During this bria e 125 VE(s) occurred. Ventricular ectopics were observed as 1370 isolated beat(s), as 7 couplet(s) a nd as 2 run(s). Some of the ventricular beats occurred in bigeminal cycles. 13 supraventricular ectopics, which represented < 1% of the total beat count, were noted. The highest supraventricular e ctopic frequency occurred from 11:00 PM to 12:00 AM Tue. During this time 2 SVE(s) occurred. No episodes of ST depression (defined as -1.0 mm or more) were noted in channel 1. No episodes of ST de pression (defined as -1.0 mm or more) were noted in channel 2. No episodes of ST depression (defined as -1.0 mm or more) were noted in channel 3. NO DIARY MAINTAINED TEST INTERPRETATION: Sinus rhythm Sinus bradycardia Frequent PVCs Occasional PACs Signed by : Frankie Hogan
== END 2016-12-11 19:38 | disposition home or self-care (01) ==
LOC: NEDAMB 21:55 → NEDA 12-09 00:16 → NEDH 12-09 04:34 → NEPFCDU 12-09 11:01
PROVIDERS: ADMIT Hospitalist; ATTEND Hospitalist
DX: R53.1 Weakness (principal); R55 Syncope and collapse; G20 Parkinson's disease; R74.8 Abnormal levels of other serum enzymes; R11.0 Nausea; R00.1 Bradycardia, unspecified; I12.9 Hypertensive chronic kidney disease with stage 1 through stage 4 chronic kidney disease, or unspecified chronic kidney disease; N18.3 Chronic kidney disease, stage 3 (moderate); E78.5 Hyperlipidemia, unspecified; N30.00 Acute cystitis without hematuria; M19.90 Unspecified osteoarthritis, unspecified site; R29.6 Repeated falls; Z85.3 Personal history of malignant neoplasm of breast; W01.0XXA Fall on same level from slipping, tripping and stumbling without subsequent striking against object, initial encounter; Y92.009 Unspecified place in unspecified non-institutional (private) residence as the place of occurrence of the external cause
CPT/HCPCS: 70450; 71010; 72125; 80053; 81001; 82550; 83605; 84484; 85025; 85610; 85730; 87040; 93005; 93225; 93226; 93306; 93880; 96361; 96365; 97162; 99285; G0378; G8987; G8988; J0696; J7030